=== PATIENT | male | born 1980 | race Two or more races ===

== ENCOUNTER 2021-12-10 10:14 | Inpatient (IN) | payer MEDICAID, OTHER, SELFPAY ==
[~2021-12-10] VITALS: Ht 175.3 cm; Wt 120.0 kg
[2021-12-10 11:13] LABS: Basophils # (auto) 0.1 10 ^3/uL (0-0.2); Basophils % (auto) 0.4 % (0.0-2.0); Eosinophils # (auto) 0 10 ^3/uL (0-0.8); Eosinophils % (auto) 0.1 % (0.0-7.0); Hematocrit 46.2 % (41.0-53.0); Hemoglobin 15.8 g/dL (13.5-17.5); Lymphocytes # (auto) 1.4 10 ^3/uL (0.4-5.4); Lymphocytes % (auto) 7.7 % (10.0-50.0); Mean Corpuscular Hemoglobin 28.5 pg (28.0-32.0); Mean Corpuscular Hgb Conc. 34.2 g/dL (32.0-36.0); Mean Corpuscular Volume 83.3 fL (80.0-100.0); Monocytes # (auto) 1.3 10 ^3/uL (0-1.3); Monocytes % (auto) 7.4 % (0.0-12.0); Neutrophils # (auto) 15.1 10 ^3/uL (1.6-8.6); Neutrophils % (auto) 84.4 % (37.0-80.0); Red Blood Cells 5.55 10^6/uL (4.5-5.90); Red Cell Distribution Width 12.9 % (11.8-14.3); White Blood Cell 17.9 10^3/uL (4.4-10.8)
[2021-12-10 11:18] LABS: Urine Bacteria FEW /hpf (None Seen); Urine Blood Negative /uL (Negative); Urine Specific Gravity 1.009 (1.001-1.035); Urine WBC 2 /hpf (0 - 3)
[2021-12-10 11:30] LABS: Albumin 4.2 g/dL (3.4-5.0); Calcium 9.3 mg/dL (8.5-10.1); Potassium 3.8 mmol/L (3.5-5.1)
[2021-12-10 11:44] LABS: BUN/Creatinine Ratio 9.6; Bilirubin, Total 0.9 mg/dL (0.2-1.0); Total Protein 8.4 g/dL (6.4-8.2)
[2021-12-10] MEDS ORDERED: DONNATAL 5ml ORAL Elix (BELLADONNA ALK-PHENOBARB) PO ONE (12:00)
[2021-12-10] MEDS ORDERED: ONDANSETRON HCL 4 MG/2 ML VIAL IV ONE (12:00)
[2021-12-10] MEDS ORDERED: cefTRIAXone 1GM/50ML D5W 50 ML IV ONE (12:00)
[2021-12-10] MEDS ORDERED: SODIUM CHLORIDE 0.9% 1,000 ML IV ONE ×2 (12:00)
[2021-12-10] MEDS ORDERED: ALUM & MAG HYDROX-SIMETH LIQ(MAALOX) 30 ML PO ONE (12:00)
[2021-12-10] MEDS ORDERED: MORPHINE SULFATE 4 MG/ML SYR/VIAL IV ONE (12:00)
[2021-12-10] MEDS ORDERED: LIDOCAINE VISCOUS 2% 15ML UD PO ONE (12:00)
[2021-12-10] MEDS ORDERED: metroNIDAZOLE 500MG/100ML 100 ML IV ONE (12:15)
[2021-12-10] MEDS ORDERED: NITROGLYCERIN 0.4 MG SL TAB SL PRN ×2 (13:15→16:15)
[2021-12-10 13:55] LABS: Partial Thromboplastin Time 29.3 sec (23.6-33.0)
[2021-12-10 14:11] LABS: INR 1.02 (0.9-1.15); Partial Thromboplastin Time 26.8 sec (23.6-33.0)
[2021-12-10 14:13] LABS: Lactic Acid w/Reflex 3.4 mmol/L (0.4-2.0)
[2021-12-10] MEDS ORDERED: LIDOCAINE 1%-Mpf/Epinephrine 1:200,000 ONE (14:31)
[2021-12-10] MEDS: MORPHINE SULFATE INJECTION 2 MG/ML SYRG IV PRN ×2 (14:52→23:28)
[2021-12-10] MEDS ORDERED: HYDROmorphone HCL 2 MG/ML VL IV ONE ×2 (15:00→17:00)
[2021-12-10] MEDS ORDERED: MIDAZOLAM HCL 2MG/2ML 2ml VIAL (1mg/ml) ONE (15:04)
[2021-12-10] MEDS ORDERED: ROCURONIUM 10MG/ML 10ML VIAL IV ONE (15:05)
[2021-12-10] MEDS ORDERED: fentaNYL CITRATE 5 ML ONE (15:09)
[2021-12-10] MEDS ORDERED: SUCCINYLCHOLINE CHLORIDE 20 MG/ML 10ML VIAL IV ONE (15:11)
[2021-12-10] MEDS ORDERED: ONDANSETRON HCL 4 MG/2 ML VIAL ONE (15:30)
[2021-12-10] MEDS ORDERED: LIDOCAINE 2% (LOCAL ANESTH.) PF 5ml SDV ONE (15:30)
[2021-12-10] MEDS ORDERED: PROPOFOL 10 MG/ML 20 ML IV ONE (15:30)
[2021-12-10] MEDS ORDERED: HYDROmorphone HCL 2 MG/ML VL ONE (16:07)
[2021-12-10] MEDS ORDERED: LABETALOL HCL 5 MG/ML 4ML SYRINGE IV PRN (16:15)
[2021-12-10] MEDS ORDERED: ALUM & MAG HYDROX-SIMETH LIQ(MAALOX) 30 ML PO PRN (16:15)
[2021-12-10] MEDS ORDERED: DOCUSATE SOD 100 MG CAP PO PRN (16:15)
[2021-12-10] MEDS ORDERED: TEMAZEPAM 15 MG CAP PO PRN (16:15)
[2021-12-10] MEDS ORDERED: METOPROLOL SUCCINATE XL 50 MG TAB PO ONE (16:15)
[2021-12-10] MEDS ORDERED: MORPHINE SULFATE INJECTION 2 MG/ML SYRG IV PRN (16:15)
[2021-12-10] MEDS ORDERED: NIFEdipine ER 30 MG TAB PO ONE (16:15)
[2021-12-10] MEDS ORDERED: FAMOTIDINE (10MG/ML) 2ML VL IV ONE (16:15)
[2021-12-10] MEDS ORDERED: ceFAZolin 1GM/50ML 50 ML IV ONE (16:15)
[2021-12-10 17:03] LABS: Amphetamine Screen, Urine NEGATIVE (NEGATIVE); Barbiturate Scree,Urine NEGATIVE (NEGATIVE); Benzodiazephine Screen, Urine NEGATIVE (NEGATIVE); Cannabinoid Screen, Urine NEGATIVE (NEGATIVE); Cocaine Screen, Urine NEGATIVE (NEGATIVE); Phencyclidine Screen, Urine NEGATIVE (NEGATIVE)
[2021-12-10 17:05] LABS: Cholesterol 226 mg/dL (< 200); HDL Cholesterol 32 mg/dL (40-59); LDL Cholesterol 142 mg/dL (< 100); Triglycerides 312 mg/dL (< 150)
[2021-12-10 17:10] LABS: Alcohol, Urine < 3.0 mg/dL (0-10); Opiate Scree,Urine NEGATIVE (NEGATIVE)
[2021-12-10] MEDS ORDERED: NEOSTIGMINE 1 MG/ML INJ (10mg/10ML VIAL) ONE (17:40)
[2021-12-10] MEDS ORDERED: GLYCOPYRROLATE 0.2 MG/ML 1ML VIAL ONE (17:40)
[2021-12-10] MEDS ORDERED: HYDROmorphone HCL 2 MG/ML VL IV PRN ×2 (18:00)
[2021-12-10] MEDS ORDERED: ONDANSETRON HCL 4 MG/2 ML VIAL IV PRN (18:00)
[2021-12-10] MEDS ORDERED: ACETAMINOPHEN 325 MG TAB PO ONE (19:15)
[2021-12-10] MEDS ORDERED: levoFLOXacin 500MG 100 ML IV ONE (20:00)
[2021-12-10] MEDS: metroNIDAZOLE 500MG/100ML 100 ML IV SCH (21:39)
[2021-12-10] MEDS: ATORVASTATIN 20 MG TAB PO SCH (21:40)
[2021-12-10] MEDS ORDERED: ceFAZolin 1GM/50ML 50 ML IV SCH (22:00)
[2021-12-11] MEDS: HYDROcodone-ACET 5/325MG TAB PO PRN ×2 (00:37→13:54)
[2021-12-11 05:23] LABS: Basophils # (auto) 0 10 ^3/uL (0-0.2); Basophils % (auto) 0.1 % (0.0-2.0); Eosinophils # (auto) 0 10 ^3/uL (0-0.8); Hematocrit 42.4 % (41.0-53.0); Lymphocytes % (auto) 7.1 % (10.0-50.0); Mean Corpuscular Hemoglobin 27.9 pg (28.0-32.0); Mean Corpuscular Hgb Conc. 33.1 g/dL (32.0-36.0); Mean Corpuscular Volume 84.4 fL (80.0-100.0); Monocytes # (auto) 1.4 10 ^3/uL (0-1.3); Monocytes % (auto) 9.7 % (0.0-12.0); Neutrophils % (auto) 83.1 % (37.0-80.0); Nucleated Red Blood Cells % 0.1 %; Red Blood Cells 5.03 10^6/uL (4.5-5.90); Red Cell Distribution Width 13.3 % (11.8-14.3); White Blood Cell 14.4 10^3/uL (4.4-10.8)
[2021-12-11] MEDS: metroNIDAZOLE 500MG/100ML 100 ML IV SCH ×3 (05:30→21:17)
[2021-12-11 05:35] LABS: INR 1.17 (0.9-1.15); Partial Thromboplastin Time 30.1 sec (23.6-33.0)
[2021-12-11 05:36] LABS: Potassium 3.5 mmol/L (3.5-5.1)
[2021-12-11 05:45] LABS: BUN/Creatinine Ratio 12.2; Bilirubin, Total 2.2 mg/dL (0.2-1.0); Calcium 7.8 mg/dL (8.5-10.1); Magnesium 2.2 mg/dL (1.6-2.6); Phosphorus 2.3 mg/dL (2.5-4.90); Total Protein 6.9 g/dL (6.4-8.2)
[2021-12-11 09:00] VITALS: BP 136/71
[2021-12-11] MEDS: FAMOTIDINE (10MG/ML) 2ML VL IV SCH (10:00)
[2021-12-11] MEDS: ASPirin 81 mg TAB PO SCH (11:01)
[2021-12-11] MEDS: ENOXAPARIN SOD 40 MG/0.4 ML SYRINGE SC SCH (11:02)
[2021-12-11] MEDS: PANTOPRAZOLE 40 MG/10 ML VIAL INJ IV SCH (11:03)
[2021-12-11] MEDS: levoFLOXacin 500MG 100 ML IV SCH (11:03)
[2021-12-11] MEDS: ONDANSETRON HCL 4 MG/2 ML VIAL IV PRN ×3 (11:11→20:45)
[2021-12-11] MEDS: MORPHINE SULFATE INJECTION 2 MG/ML SYRG IV PRN ×2 (11:12→16:16)
[2021-12-11] MEDS: METOPROLOL SUCCINATE XL 50 MG TAB PO SCH (11:22)
[2021-12-11] MEDS: NIFEdipine ER 30 MG TAB PO SCH (11:22)
[2021-12-11 13:22] VITALS: BP 145/90
[2021-12-11 17:00] VITALS: BP 127/87
[2021-12-11] MEDS ORDERED: IOHEXOL 350 MG/ML 100ML IJ ONE (17:11)
[2021-12-11 20:00] VITALS: BP 128/91
[2021-12-11] MEDS: ATORVASTATIN 20 MG TAB PO SCH (21:17)
[2021-12-11] MEDS: METOCLOPRAMIDE HCL 5MG/ml INJ 2ml VIAL IV PRN (23:22)
[2021-12-12] MEDS: ONDANSETRON HCL 4 MG/2 ML VIAL IV PRN ×4 (04:40→23:45)
[2021-12-12 06:00] VITALS: BP 140/99
[2021-12-12] MEDS: metroNIDAZOLE 500MG/100ML 100 ML IV SCH ×3 (06:48→21:25)
[2021-12-12 08:00] VITALS: BP 150/93
[2021-12-12] MEDS: D5W/SOD CHLO 0.9% 1,000 ML IV SCH ×2 (08:15→21:32)
[2021-12-12] MEDS: MORPHINE SULFATE INJECTION 2 MG/ML SYRG IV PRN ×2 (08:54→16:49)
[2021-12-12] MEDS: ENOXAPARIN SOD 40 MG/0.4 ML SYRINGE SC SCH (09:56)
[2021-12-12] MEDS: PANTOPRAZOLE 40 MG/10 ML VIAL INJ IV SCH (09:56)
[2021-12-12] MEDS: ASPirin 81 mg TAB PO SCH (09:58)
[2021-12-12] MEDS: METOPROLOL SUCCINATE XL 50 MG TAB PO SCH (09:58)
[2021-12-12] MEDS: NIFEdipine ER 30 MG TAB PO SCH (09:59)
[2021-12-12] MEDS: FAMOTIDINE (10MG/ML) 2ML VL IV SCH (09:59)
[2021-12-12] MEDS: levoFLOXacin 500MG 100 ML IV SCH (10:00)
[2021-12-12 12:00] VITALS: BP 135/89
[2021-12-12] MEDS: METOCLOPRAMIDE HCL 5MG/ml INJ 2ml VIAL IV PRN (12:19)
[2021-12-12 16:00] VITALS: BP 125/84
[2021-12-12] MEDS: ATORVASTATIN 20 MG TAB PO SCH (21:25)
[2021-12-12 22:00] VITALS: BP 117/83
[2021-12-12] MEDS: HYDROcodone-ACET 5/325MG TAB PO PRN (23:44)
[2021-12-13] MEDS: D5W/SOD CHLO 0.9% 1,000 ML IV SCH ×2 (04:15→21:28)
[2021-12-13 05:00] VITALS: BP 120/89
[2021-12-13] MEDS: metroNIDAZOLE 500MG/100ML 100 ML IV SCH ×3 (05:40→21:09)
[2021-12-13 09:00] VITALS: BP 131/80
[2021-12-13] MEDS: levoFLOXacin 500MG 100 ML IV SCH (10:04)
[2021-12-13] MEDS: NIFEdipine ER 30 MG TAB PO SCH (10:05)
[2021-12-13] MEDS: FAMOTIDINE (10MG/ML) 2ML VL IV SCH (10:05)
[2021-12-13] MEDS: PANTOPRAZOLE 40 MG/10 ML VIAL INJ IV SCH (10:05)
[2021-12-13] MEDS: ENOXAPARIN SOD 40 MG/0.4 ML SYRINGE SC SCH (10:06)
[2021-12-13] MEDS: METOPROLOL SUCCINATE XL 50 MG TAB PO SCH (10:06)
[2021-12-13] MEDS: ASPirin 81 mg TAB PO SCH (10:06)
[2021-12-13 12:00] VITALS: BP 145/78
[2021-12-13 12:21] LABS: Hepatitis A Ab IgM Negative; Hepatitis B Core IgM Negative; Hepatitis C Antibody Negative (Negative)
[2021-12-13 16:00] VITALS: BP 136/83
[2021-12-13] MEDS: ATORVASTATIN 20 MG TAB PO SCH (21:07)
[2021-12-13] MEDS: ONDANSETRON HCL 4 MG/2 ML VIAL IV PRN (21:24)
[2021-12-13] MEDS: HYDROcodone-ACET 5/325MG TAB PO PRN (21:24)
[2021-12-13 22:00] VITALS: BP 121/76
[2021-12-14] MEDS: D5W/SOD CHLO 0.9% 1,000 ML IV SCH (00:15)
[2021-12-14] MEDS: HYDROcodone-ACET 5/325MG TAB PO PRN ×2 (03:57→10:33)
[2021-12-14] MEDS: metroNIDAZOLE 500MG/100ML 100 ML IV SCH (05:15)
[2021-12-14 06:00] VITALS: BP 132/72
[2021-12-14 09:00] VITALS: BP 128/88
[2021-12-14] MEDS: levoFLOXacin 500MG 100 ML IV SCH (10:29)
[2021-12-14] MEDS: PANTOPRAZOLE 40 MG/10 ML VIAL INJ IV SCH (10:30)
[2021-12-14] MEDS: ENOXAPARIN SOD 40 MG/0.4 ML SYRINGE SC SCH (10:31)
[2021-12-14] MEDS: ASPirin 81 mg TAB PO SCH (10:32)
[2021-12-14] MEDS: METOPROLOL SUCCINATE XL 50 MG TAB PO SCH (10:32)
[2021-12-14] MEDS: NIFEdipine ER 30 MG TAB PO SCH (10:33)
[2021-12-14] MEDS: FAMOTIDINE (10MG/ML) 2ML VL IV SCH (10:49)
[2021-12-14 13:00] VITALS: BP 137/93
[2021-12-14 13:56] VITALS: BP 128/88
[2021-12-15] MEDS ORDERED: ATO40T PO (09:27)
[2021-12-15] MEDS ORDERED: HYDR-4902 PO (09:27)
[2021-12-15] MEDS ORDERED: METR500T PO (09:27)
[2021-12-15] MEDS ORDERED: LEVO500T31 PO (09:27)
== END 2021-12-14 16:00 | disposition home or self-care (01) | DRG 710 ==
LOC: ER 10:14 → OVERFLOW 13:05 → WEST WING 19:40
PROVIDERS: ADMIT Hospitalist; ATTEND Family Medicine
PROC: 0WJG4ZZ Inspection of Peritoneal Cavity, Percutaneous Endoscopic Approach (ICD-10-PCS; 2021-12-10)
PROC: 0DTJ0ZZ Resection of Appendix, Open Approach (ICD-10-PCS; principal; 2021-12-10 15:25)
DX: A41.9 Sepsis, unspecified organism (principal); K35.32 Acute appendicitis with perforation, localized peritonitis, and gangrene, without abscess; E88.81 Metabolic syndrome and other insulin resistance; I16.9 Hypertensive crisis, unspecified; K76.0 Fatty (change of) liver, not elsewhere classified; E66.01 Morbid (severe) obesity due to excess calories; E86.0 Dehydration; E78.00 Pure hypercholesterolemia, unspecified; E78.5 Hyperlipidemia, unspecified; Z20.822 Contact with and (suspected) exposure to COVID-19; I10 Essential (primary) hypertension; Z79.899 Other long term (current) drug therapy; Z68.39 Body mass index [BMI] 39.0-39.9, adult; Z88.0 Allergy status to penicillin
CPT/HCPCS: 36415; 71045; 71275; 74176; 80053; 80061; 80074; 80307; 81001; 82150; 83036; 83605; 83690; 83735; 83880; 84100; 84484; 85025; 85379; 85610; 85730; 86850; 86900; 86901; 87040; 87070; 87075; 87076; 87086; 87205; 87426; 93005; 93970; 96365; 97163; C9113; G0378; J0330; J0696; J1956; J2001; J2250; J2405; J2704; J3490; J7042

== ENCOUNTER 2021-12-25 00:12 | Emergency (ER) | payer SELFPAY ==
[~2021-12-25] VITALS: Ht 175.3 cm; Wt 113.4 kg
[~2021-12-25 00:12] MED LIST: ATO40T PO; HYDR-4902 PO; LEVO500T31 PO; METR500T PO
[2021-12-25] MEDS ORDERED: CLIN300C8 PO (01:41)
[2021-12-25 06:34] VITALS: BP 153/101
== END 2021-12-25 02:44 | disposition home or self-care (01) ==
LOC: ER 00:18
DX: L02.211 Cutaneous abscess of abdominal wall (principal); Z88.0 Allergy status to penicillin

== ENCOUNTER 2024-06-24 15:56 | Emergency (ER) | payer MEDICAID, SELFPAY ==
[~2024-06-24] VITALS: Ht 177.8 cm; Wt 119.0 kg
[~2024-06-24 15:56] MED LIST changes: -ATO40T PO; +ATOR-507 PO; +CLIN1CAP70 PO
[2024-06-24 16:35] LABS: Urine Bacteria None Seen /hpf (None Seen)
[2024-06-24 16:52] LABS: Basophils # (auto) 0.1 10 ^3/uL (0-0.2); Basophils % (auto) 0.8 % (0.0-2.0); Eosinophils # (auto) 0.1 10 ^3/uL (0-0.8); Hematocrit 44.9 % (41.0-53.0); Hemoglobin 15.5 g/dL (13.5-17.5); Lymphocytes # (auto) 1.7 10 ^3/uL (0.4-5.4); Lymphocytes % (auto) 26.6 % (10.0-50.0); Mean Corpuscular Hemoglobin 29.4 pg (28.0-32.0); Mean Corpuscular Hgb Conc. 34.4 g/dL (32.0-36.0); Mean Corpuscular Volume 85.5 fL (80.0-100.0); Monocytes # (auto) 0.5 10 ^3/uL (0-1.3); Monocytes % (auto) 7.3 % (0.0-12.0); Neutrophils # (auto) 4.2 10 ^3/uL (1.6-8.6); Neutrophils % (auto) 64.3 % (37.0-80.0); Nucleated Red Blood Cells % 0.1 %; Red Blood Cells 5.26 10^6/uL (4.5-5.90); Red Cell Distribution Width 12.7 % (11.8-14.3); White Blood Cell 6.5 10^3/uL (4.4-10.8)
[2024-06-24 16:55] LABS: Urine Blood Negative /uL (Negative); Urine Clarity Turbid (Clear); Urine Color Yellow (Yellow); Urine Mucus MODERATE (None Seen); Urine Protein, UAD TRACE (Negative); Urine Specific Gravity 1.029 (1.001-1.035); Urine Urobilinogen Normal (Negative); Urine WBC 3 /hpf (0 - 3); Urine pH 5.5 (5.0-9.0)
[2024-06-24 17:14] LABS: Alanine Aminotransferase 42 U/L (7-40); Albumin 4.6 g/dL (3.2-4.8); Alkaline Phosphatase 113 U/L (46-116); Anion Gap 11 (5-15); Aspartate Aminotransferase 16 U/L (13-40); BUN/Creatinine Ratio 15.8 (10.0-20.0); Bilirubin, Total 0.4 mg/dL (0.2-1.0); Blood Urea Nitrogen 15 mg/dL (9-23); Calcium 9.8 mg/dL (8.7-10.4); Carbon Dioxide 21 mmol/L (20-30); Chloride 106 mmol/L (98-107); Glucose 201 mg/dL (74-106); Magnesium 1.6 mg/dL (1.6-2.6); Potassium 3.9 mmol/L (3.5-5.1); Sodium 138 mmol/L (136-145); Total Protein 7.1 g/dL (5.7-8.2)
[2024-06-24 20:38] VITALS: BP 137/95; PULSE 76; RESP 17; TEMP 98; O2SAT 95
== END 2024-06-24 20:41 | disposition home or self-care (01) ==
LOC: ER 15:56
DX: R07.89 Other chest pain (principal); F41.9 Anxiety disorder, unspecified; Z88.0 Allergy status to penicillin; Z79.899 Other long term (current) drug therapy
CPT/HCPCS: 36415; 71045; 80053; 81001; 83735; 83880; 84484; 85025; 93005

== ENCOUNTER 2025-09-24 03:26 | Emergency (ER) | payer MEDICAID ==
[~2025-09-24] VITALS: Ht 172.7 cm; Wt 109.0 kg
[2025-09-24 03:49] VITALS: BP 148/93; PULSE 66; RESP 18; TEMP 98.3; O2SAT 99
--- NOTE | 2025-09-24 03:51 | ED.PDOC ---
Musculoskeletal HPI Comments 45-year-old male presents to ER with complaints of right shoulder pain x1 day. Patient reports that he tripped and fell and landed on his right shoulder onto dirt ground yesterday at 3:00 p.m. and has since been experiencing 10/10 right shoulder pain. Denies head injury/LOC and denies any other reported injuries. Patient presents to ER ambulatory on arrival, alert oriented x4, with steady gait, in no distress and notes he did take ibuprofen for his pain without relief. Denies neck pain, numbness/tingling, skin changes, syncope, chest pain, shortness of breath or any further symptoms/complaints Chief Complaint: Fall Injury Time Seen by MD: 03:41 Primary Care Provider: UNKNOWN Reviewed Notes: Nurses Notes, Medications, Allergies Allergies: Coded Allergies: Penicillins (Verified Allergy, Unknown, 12/10/21) Home Meds Active Scripts Ibuprofen (Ibuprofen) 800 Mg Tab, 1 TAB PO TID PRN, #30 TAB 0 Refills Prov:GUSTABO CABRERA 09/24/25 Clindamycin Hcl (Clindamycin Hcl) 300 Mg Cap, 300 MG PO TID for 7 Days, #21 CAP 0 Refills Prov:JAMIE ESCALANTE 12/25/21 Hydrocodone-Acetaminophen (Hydrocodone Bitartrate/AC 5-325 mg) 1 Tab Tab, 1 TAB PO Q6HR, #30 TAB Prov:MULU ROSEN MD 12/15/21 Atorvastatin Calcium (Lipitor) 40 Mg Tab, 1 TAB PO QPM, #90 TAB 1 Refill Prov:MULU ROSEN MD 12/15/21 Metronidazole (Flagyl) 500 Mg Tab, 500 MG PO TID, #30 TAB Prov:MULU ROSEN MD 12/15/21 Levofloxacin (Levaquin) 500 Mg Tab, 500 MG PO DAILY, #10 TAB Prov:MULU ROSEN MD 12/15/21 Information Source: Patient Mode of Arrival: Ambulatory Past Medical History PAST MEDICAL HISTORY: DM, HTN Surgical History: Denies all surgeries Family History Family History: Unknown Social History Smoker: Non-Smoker Alcohol: Denies ETOH Use Drugs: Denies Drug Use Lives In: Home Constitutional: denies: chills, diaphoresis, fatigue, fever, malaise, sweats, weakness, others EENTM: denies: blurred vision, double vision, ear bleeding, ear discharge, ear drainage, ear pain, ear ringing, eye pain, eye redness, hearing loss, mouth pain, mouth swelling, nasal discharge, nose bleeding, nose congestion, nose pain, photophobia, tearing, throat pain, throat swelling, voice changes, others Respiratory: denies: cough, hemoptysis, orthopnea, SOB at rest, shortness of breath, SOB with excertion, stridor, wheezing, others Cardiovascular: denies: chest pain, dizzy spells, diaphoresis, Dyspnea on exertion, edema, irregular heart beat, left arm pain, lightheadedness, palpitations, PND, syncope, others Gastrointestinal: denies: abdomen distended, abdominal pain, blood streaked bowels, constipated, diarrhea, dysphagia, difficulty swallowing, hematemesis, melena, nausea, poor appetite, poor fluid intake, rectal bleeding, rectal pain, vomiting, others Genitourinary: denies: burning, dysuria, flank pain, frequency, hematuria, incontinence, penile discharge, penile sore, pain, testicle pain, testicle swelling, urgency, others Neurological: denies: dizziness, fainting, headache, left sided numbness, left sided weakness, numbness, paresthesia, pre-existing deficit, right sided numbness, right sided weakness, seizure, speech problems, tingling, tremors, wea kness, others Musculoskeletal: reports: others (As stated in HPI) Integumetry: denies: bruises, change in color, change in hair/nails, dryness, laceration, lesions, lumps, rash, wounds, others Allergic/Immunocompromised: denies: Difficulty Healing, Frequent Infections, Hives, Itching, others Hematologic/Lymphatic: denies: anemia, blood clots, easy bleeding, easy bruising, swollen glands, others Endocrine: denies: excessive hunger, excessive sweating, excessive thirst, excessive urination, flushing, intolerance to cold, intolerance to heat, unexplained weight gain, unexplained weight loss, others Psychiatric: denies: anxiety, bipolar disorder, depression, hopeless, panic disorder, schizophrenia, sleepless, suicidal, others Physical Exam General Appearance: No Apparent Distress, Obese HEENT: PERRL/EOMI Neck: Full Range of Motion, Non-Tender, Normal Respiratory: Chest Non-Tender, Lungs Clear, No Accessory Muscle Use, No Respiratory Distress, Normal Breath Sounds Cardiovascular: No Murmur, No Gallop, Regular Rate/Rhythm Breast Exam: Deferred Gastrointestinal: NOT DONE Genitalia: Deferred Pelvic: Deferred Rectal: Deferred Extremities: Normal capillary refill Musculoskeletal : Extremity Location: Shoulder (TTP to right proximal humerus noted. Positive Apley scratch test right shoulder. No skin changes/deformity noted. Pulses intact) Neurologic: Alert, No Motor Deficits, Normal Affect, Normal Mood, No Sensory Deficits Cerebellar Function: Normal Reflexes: Normal Skin: Dry, Normal Color, Warm Peripheral Pulses: 2+ carotid (R), 2+ carotid (L), 2+ Radial (R), 2+ Radial (L), 2+ Brachial (R), 2+ Brachial (L) Lymphatic: No Adenopathy Was a procedure done? Was a procedure done?: No Sedation Sedation?: No Differential Diagnosis EXT Differential Diagnosis: Fracture, Dislocation, Neurovascular injury X-Ray, Labs, Meds, VS Vital Signs Date Time Temp Pulse Resp B/P (MAP) Pulse Ox O2 Delivery O2 Flow Rate FiO2 09/24/25 03:49 98.3 66 18 148/93 (111) 99 98.3 09/24/25 03:45 Room Air* 0 21 09/24/25 03:29 98.3 66 18 161/114 99 98.3 PATIENT: CHITRA HERRERACCT: [id number]: [id number] : 1980 LOC: ER ROOM / BED: / AGE / SEX: 45 / M ADM STATUS: REG ER SERVICE [id number] ORDERING PHYSICIAN: GUSTABO CABRERA PROCEDURE(s): RSHD2 - R SHOULDER 2+ VIEW XRAY REASON: right shoulder pain ORDER NUMBER(s): [id number], ACCESSION NUMBER(s): [id number] EXAM: XY R SHOULDER 2+ VIEW XRAY HISTORY: right shoulder pain COMPARISON: None TECHNIQUE: Four views of the right shoulder were performed. FINDINGS: No acute fracture or dislocation are identified about the right shoulder. Minor degenerative changes are noted. The bones are somewhat osteopenic. IMPRESSION: 1. Unremarkable radiographs of the right shoulder. ATED BY: JUDI RIVERA MD DICTATED DATE/TIME: 09/24/25418 SIGNED BY: JUDI RIVERA MD SIGNED DATE/TIME: 09/24/25418 CC: Right shoulder x-ray reviewed Right arm sling applied Toradol 60 mg IM ordered Patient neurovascularly intact and reported improvement in symptoms prior to discharge Advised on elevation and alternate ice on/off as needed for pain/swelling Advised to follow up with PCP and orthopedics in 1-2 days Patient verbalized understanding agreeable with current plan of care Advised to return to ER immediately if symptoms worsen Images Reviewed?: Images reviewed and evaluated by me Time of 1ST Reevaluation: 03:54 Reevaluation 1ST: N/A Patient Education/Counseling: Diagnosis, Treatment, Prognosis, Need For Follow Up Family Education/Counseling: No Family Present Departure 1 Departure Time of Disposition: 04:28 Impression: Primary Impression: Right shoulder strain Qualified Codes: S46.911A - Strain of unspecified muscle, fascia and tendon at shoulder and upper arm level, right arm, initial encounter Disposition: HOME / SELF CARE / HOMELESS Condition: Stable e-Prescriptions Ibuprofen (Ibuprofen) 800 Mg Tab 1 TAB PO TID PRN, #30 TAB 0 Refills Prov: GUSTABO CABRERA 09/24/25 Discharged With: Friend Critical Care Note Critical Care Time?: No Stability Stability form required: No Heart Score Heart Score: Heart Score Response (Comments) Value History N/A 0 EKG N/A 0 Age N/A 0 Risk Factors N/A 0 Troponin N/A 0 Total 0 GUSTABO CABRERA Sep 24, 2025 03:51
[2025-09-24] MEDS ORDERED: IBUP-1456 PO (03:55)
[2025-09-24] MEDS ORDERED: HYDROcodone-ACET 5/325MG TAB PO ONE (04:00)
[2025-09-24] MEDS ORDERED: ONDANSETRON ODT 4 MG TAB PO ONE (04:00)
--- NOTE | 2025-09-24 04:22 | DVH ---
EXAM: XY R SHOULDER 2+ VIEW XRAY HISTORY: right shoulder pain COMPARISON: None TECHNIQUE: Four views of the right shoulder were performed. FINDINGS: No acute fracture or dislocation are identified about the right shoulder. Minor degenerative changes are noted. The bones are somewhat osteopenic. IMPRESSION: 1. Unremarkable radiographs of the right shoulder.
[2025-09-24] MEDS: KETOROLAC TROMETH 60MG/2ML VIAL IM ONE (04:37)
== END 2025-09-24 04:38 | disposition home or self-care (01) ==
LOC: ER 03:26
DX: S46.911A Strain of unspecified muscle, fascia and tendon at shoulder and upper arm level, right arm, initial encounter (principal); I10 Essential (primary) hypertension; E11.9 Type 2 diabetes mellitus without complications; Z88.0 Allergy status to penicillin; W01.198A Fall on same level from slipping, tripping and stumbling with subsequent striking against other object, initial encounter; Y93.89 Activity, other specified; Y92.89 Other specified places as the place of occurrence of the external cause; Y99.8 Other external cause status
CPT/HCPCS: 73030; 96372; 99283; J1885; Q0162